=== PATIENT | female | born 1930 | race Caucasian/White ===

== ENCOUNTER 2016-09-03 21:13 | Day surgery (SDC) | payer OTHER, BC ==
[~2016-09-03] VITALS: Ht 170.2 cm; Wt 62.0 kg
[~2016-09-03 21:13] MED LIST: ACCUPRIL10 MG PO; ACCUPRIL5 MG PO; ALBUTEROL17 GM IH; ALENDRONATE SOD70 MG PO; ALPRAZOLAM0.25 M2 PO; AMIODARONE HCL100 MG PO; AMIODARONE HCL400 MG PO; ASPIR 8181 M1 PO; ATORVASTATIN CA20 MG PO; BIOTENE PBF473 ML MM; CALCIUM 600 +1 EAC1 PO; CEPHALEXIN250 MG PO; COLACE100 MG PO; COUMADIN4 MG PO; DONEPEZIL HCL5 MG PO; FERROUS SULFAT325 MG PO; FLONASE16 G1 BOTH NARES; FLOVENT DISKUS1 DIS1 IH; KLONOPIN0.5 M1 PO; KLONOPIN0.5 MG PO; LEFLUNOMIDE20 MG PO; LEVAQUIN500 MG PO; LEVOTHYROXINE25 MCG PO; LIPITOR20 MG PO; LUBRICANT EYE3.5 G1 RIGHT EAR; MUCINEX600 MG PO; NAMENDA10 MG PO; PACERONE100 MG PO; PANTOPRAZOLE SO40 MG PO; PREDNISONE2.5 MG PO; PREDNISONE5 MG PO; PROAIR HFA8.5 GM IH; PROTONIX40 MG PO; REFRESH OPTIVE15 ML BOTH EYES; REQUIP0.5 MG PO; RESTASIS 01 DROP/0.4 BOTH EYES; ROPINIROLE HC0.25 MG PO; SEROQUEL12.5 MG PO; SERTRALINE HCL100 MG PO; SYNTHROID175 MCG PO; SYNTHROID25 MCG PO; SYNTHROID50 MCG PO; SYSTANE 0.3-0.1 EACH BOTH EYES; TIROSINT100 MCG PO; TOBRADEX EYE O3.5 GM RIGHT EYE; TYLENOL EXTRA500 MG PO; VENTOLIN HFA18 GM IH; XANAX0.5 MG PO; ZOCOR20 MG PO; ZOLOFT100 MG PO; ZOLOFT25 MG PO; ZOLOFT50 MG PO
[2016-09-03 21:51] LABS: HEMATOCRIT 34.8 % (36.0-46.0); MCH 31.1 PG (29.0-34.0); MCHC 32.8 G/DL (30.0-36.0); MCV 94.8 FL (83-99); MEAN PLAT.VOLUME 9.1 uM^3 (9.5-12.4); PLATELET COUNT 351 K/uL (156-360); RBC DIS.WIDTH-CV 13.8 % (11.8-14.6); RBC DIS.WIDTH-SD 44.4 % (39-53); RED BLOOD COUNT 3.67 M/uL (3.80-5.20); WHITE BLOOD COUNT 9.5 K/uL (4.1-10.2)
[2016-09-03 22:03] LABS: CHLORIDE 102 mEq/L (99-109); POTASSIUM 4.4 mEq/L (3.7-5.4); SODIUM 137 mEq/L (136-147)
[2016-09-03 22:04] LABS: GLUCOSE 115 mg/dL (70-99)
[2016-09-03 22:06] LABS: ANION GAP 12 MEQ/L (2-14)
[2016-09-03 22:08] LABS: GFR ESTIMATE (CALCULATED) 42 mL/min/
[2016-09-03 22:09] LABS: UREA NITROGEN (BUN) 22 mg/dL (9-23)
[2016-09-03 23:43] VITALS: BP 158/95
== END 2016-09-04 01:31 | disposition home or self-care (01) ==
LOC: EME 21:13 → SDC 23:44 → EME 23:44 → SDC 09-04 01:31
PROVIDERS: Physician Assistant
PROC: 0DC38ZZ Extirpation of Matter from Lower Esophagus, Via Natural or Artificial Opening Endoscopic (ICD-10-PCS; principal; 2016-09-03)
DX: T18.128A Food in esophagus causing other injury, initial encounter (principal); Y92.9 Unspecified place or not applicable; K20.9 Esophagitis, unspecified; K44.9 Diaphragmatic hernia without obstruction or gangrene; I48.91 Unspecified atrial fibrillation; J44.9 Chronic obstructive pulmonary disease, unspecified; E03.9 Hypothyroidism, unspecified; F03.90 Unspecified dementia, unspecified severity, without behavioral disturbance, psychotic disturbance, mood disturbance, and anxiety; Z79.82 Long term (current) use of aspirin; Z79.51 Long term (current) use of inhaled steroids
CPT/HCPCS: 80048; 85027; 93005; 99281; 99285; J0330; J2405; J7040

== ENCOUNTER 2016-10-10 13:06 | Inpatient (IN) | payer OTHER, BC ==
[~2016-10-10] VITALS: Ht 170.2 cm; Wt 59.1 kg
[2016-10-10 14:16] LABS: EOSINOPHIL (%) 2.1 % (0-5); EOSINOPHIL COUNT 0.2 K/uL (0-0.3); HEMATOCRIT 40.2 % (36.0-46.0); IMMATURE GRANULOCYTE (%) 0.1 % (0.0-0.7); IMMATURE GRANULOCYTE COUNT 0.1 K/uL; LYMPHOCYTE COUNT 1.6 K/uL (1.0-2.8); MCH 30.2 PG (29.0-34.0); MCHC 32.8 G/DL (30.0-36.0); MONOCYTE (%) 5.9 % (3-12); MONOCYTE COUNT 0.5 K/uL (0-0.8); NEUTROPHIL (%) 73.2 % (45-76); NEUTROPHIL COUNT 6.4 K/uL (1.8-6.4); PLATELET COUNT 391 K/uL (156-360); RBC DIS.WIDTH-CV 12.9 % (11.8-14.6); RBC DIS.WIDTH-SD 41.7 % (39-53); RED BLOOD COUNT 4.37 M/uL (3.80-5.20); WHITE BLOOD COUNT 8.7 K/uL (4.1-10.2)
[2016-10-10 14:19] LABS: ADD MIUA? YES; BILIRUBIN NEGATIVE; BLOOD NEGATIVE; COLOR YELLOW ((YELLOW)); GLUCOSE (STRIP) NEGATIVE; KETONES NEGATIVE; LEUKOCYTES NEGATIVE; NITRITE NEGATIVE; PROTEIN (STRIP) NEGATIVE; SPECIFIC GRAVITY 1.008 (1.000-1.030); UROBILINOGEN 0.2 MG/DL (0.2-1.0)
[2016-10-10 14:26] LABS: INTER. NORMALIZED RATIO 1.1; PROTHROMBIN TIME 10.9 (9.2-11.2)
[2016-10-10 14:27] LABS: CHLORIDE 100 mEq/L (99-109); SODIUM 139 mEq/L (136-147)
[2016-10-10 14:28] LABS: BACTERIA RARE /HPF; EPITHELIAL CELLS NONE SEEN /HPF; MUCUS NONE SEEN /LPF; RED BLOOD CELLS 0-5 /HPF (0-5); UCUL ADDED? NO; WHITE BLOOD CELLS 0-5 /HPF (0-5)
[2016-10-10 14:29] LABS: GLUCOSE 135 mg/dL (70-99)
[2016-10-10 14:31] LABS: ANION GAP 15 MEQ/L (2-14); TOTAL BILIRUBIN 0.4 mg/dL (0.0-1.0)
[2016-10-10 14:33] LABS: ALKALINE PHOSPHATASE 96 IU/L (3-129); GFR ESTIMATE (CALCULATED) 45 mL/min/
[2016-10-10 14:34] LABS: UREA NITROGEN (BUN) 19 mg/dL (9-23)
[2016-10-10 14:36] LABS: LIPASE 29 U/L (1.0-51.0); TROP-I INTERPRETATION NEGATIVE; TROPONIN-I 0.04 ng/mL (0.0-0.30)
[2016-10-10] MEDS ORDERED: LUBRICANT EYE3.5 G2 RIGHT EYE (16:32)
[2016-10-10] MEDS ORDERED: BIOTENE PBF473 ML MM (16:37)
[2016-10-10 20:36] VITALS: BP 106/62
[2016-10-10 22:01] LABS: TROP-I INTERPRETATION NEGATIVE; TROPONIN-I 0.07 ng/mL (0.0-0.30)
[2016-10-11] VITALS: BP 117/86
[2016-10-11 03:24] LABS: HEMATOCRIT 32.5 % (36.0-46.0); MCH 30.3 PG (29.0-34.0); MCHC 32.6 G/DL (30.0-36.0); MCV 92.9 FL (83-99); MEAN PLAT.VOLUME 8.9 uM^3 (9.5-12.4); PLATELET COUNT 316 K/uL (156-360); RBC DIS.WIDTH-CV 12.9 % (11.8-14.6); RBC DIS.WIDTH-SD 40.9 % (39-53); WHITE BLOOD COUNT 7.5 K/uL (4.1-10.2)
[2016-10-11 03:30] LABS: CHLORIDE 107 mEq/L (99-109); POTASSIUM 3.7 mEq/L (3.7-5.4)
[2016-10-11 03:31] LABS: SODIUM 139 mEq/L (136-147)
[2016-10-11 03:32] LABS: GLUCOSE 98 mg/dL (70-99)
[2016-10-11 03:34] LABS: ANION GAP 10 MEQ/L (2-14)
[2016-10-11 03:36] LABS: GFR ESTIMATE (CALCULATED) 38 mL/min/
[2016-10-11 03:37] LABS: UREA NITROGEN (BUN) 24 mg/dL (9-23)
[2016-10-11 03:43] LABS: TROP-I INTERPRETATION NEGATIVE; TROPONIN-I 0.07 ng/mL (0.0-0.30)
[2016-10-11 05:25] VITALS: BP 158/85
[2016-10-11 07:34] VITALS: BP 139/86
[2016-10-11 12:28] VITALS: BP 146/84
[2016-10-11 16:19] VITALS: BP 142/80
[2016-10-11 19:56] VITALS: BP 139/86
[2016-10-12 00:23] VITALS: BP 168/87
[2016-10-12 07:39] LABS: HEMATOCRIT 37.5 % (36.0-46.0); MCH 30.9 PG (29.0-34.0); MCHC 33.3 G/DL (30.0-36.0); MCV 92.8 FL (83-99); PLATELET COUNT 336 K/uL (156-360); RBC DIS.WIDTH-SD 43.8 % (39-53); RED BLOOD COUNT 4.04 M/uL (3.80-5.20); WHITE BLOOD COUNT 7.6 K/uL (4.1-10.2)
[2016-10-12 07:54] LABS: D-DIMER ELISA 0.86 mg/L FEU (< 0.57)
[2016-10-12 08:07] VITALS: BP 150/90
[2016-10-12 08:08] LABS: ANION GAP 13 MEQ/L (2-14); CHLORIDE 105 MEQ/L (99-109); GFR ESTIMATE (CALCULATED) 56 mL/min/; GLUCOSE 98 mg/dL (70-99); POTASSIUM 3.2 MEQ/L (3.7-5.4); SAMPLE HEMOLYSIS CHECK 0; SAMPLE ICTERIC CHECK 0; SAMPLE LIPEMIA CHECK 0; SODIUM 142 MEQ/L (136-147); UREA NITROGEN (BUN) 15 mg/dL (9-23)
== END 2016-10-12 15:20 | disposition home health service (06) | DRG 72 ==
LOC: EME 13:06 → 5SOUTH 16:27 → EDOF 16:27 → 5SOUTH 19:47
PROVIDERS: Emergency Medicine; Hospitalist; Physician Assistant Medical
DX: G93.41 Metabolic encephalopathy (principal); E86.0 Dehydration; E11.9 Type 2 diabetes mellitus without complications; G30.8 Other Alzheimer's disease; F02.80 Dementia in other diseases classified elsewhere, unspecified severity, without behavioral disturbance, psychotic disturbance, mood disturbance, and anxiety; F33.42 Major depressive disorder, recurrent, in full remission; K59.03 Drug induced constipation; R00.0 Tachycardia, unspecified; R26.2 Difficulty in walking, not elsewhere classified; H35.30 Unspecified macular degeneration; H54.8 Legal blindness, as defined in USA; J43.9 Emphysema, unspecified; Z96.651 Presence of right artificial knee joint; Z96.642 Presence of left artificial hip joint; Z88.1 Allergy status to other antibiotic agents; Z88.5 Allergy status to narcotic agent; Z79.82 Long term (current) use of aspirin; Z87.891 Personal history of nicotine dependence
CPT/HCPCS: 70450; 71010; 72110; 72170; 72192; 80048; 80053; 81003; 83605; 83690; 84484; 85025; 85027; 85379; 85610; 85730; 87040; 92526 GN; 92610 GN; 93005; 93970; 97530 GO; 99202; 99281; 99285; J1644; J1885; J7030; J7512

== ENCOUNTER 2017-08-18 14:41 | Emergency (ER) | payer OTHER, BC ==
[~2017-08-18] VITALS: Ht 172.7 cm; Wt 50.0 kg
[~2017-08-18 14:41] MED LIST changes: +LUBRICANT EYE3.5 G2 RIGHT EYE
[2017-08-18 15:21] LABS: HEMATOCRIT 35.1 % (36.0-46.0); HEMOGLOBIN 11.6 G/DL (11.9-15.5); MCV 96.7 FL (83-99); PLATELET COUNT 279 K/uL (156-360); RBC DIS.WIDTH-CV 13.2 % (11.8-14.6); RBC DIS.WIDTH-SD 46.6 % (39-53); RED BLOOD COUNT 3.63 M/uL (3.80-5.20); WHITE BLOOD COUNT 8.7 K/uL (4.1-10.2)
[2017-08-18 15:31] LABS: ALBUMIN 3.5 g/dL (3.2-4.8); CHLORIDE 104 mEq/L (99-109); POTASSIUM 4.2 mEq/L (3.7-5.4); SODIUM 139 mEq/L (136-147)
[2017-08-18 15:33] LABS: GLUCOSE 149 mg/dL (70-99); TOTAL PROTEIN 6.5 g/dL (6.4-8.3)
[2017-08-18 15:35] LABS: TOTAL BILIRUBIN 0.4 mg/dL (0.0-1.0)
[2017-08-18 15:37] LABS: ALKALINE PHOSPHATASE 66 IU/L (3-129); CREATININE 1.2 mg/dL (0.6-1.3); GFR ESTIMATE (CALCULATED) 45 mL/min/
[2017-08-18 15:38] LABS: UREA NITROGEN (BUN) 21 mg/dL (9-23)
[2017-08-18 15:39] LABS: AST (GOT) 18 IU/L (2-34)
[2017-08-18 15:40] LABS: ALT (GPT) 10 IU/L (3-49)
[2017-08-18 15:48] LABS: APPEARANCE CLEAR ((CLEAR)); BILIRUBIN NEGATIVE; BLOOD NEGATIVE; COLOR YELLOW ((YELLOW)); GLUCOSE (STRIP) NEGATIVE; KETONES NEGATIVE; LEUKOCYTES LARGE; NITRITE NEGATIVE; PROTEIN (STRIP) NEGATIVE; SPECIFIC GRAVITY 1.015 (1.000-1.030); UROBILINOGEN 0.2 MG/DL (0.2-1.0)
[2017-08-18 17:09] LABS: BACTERIA 2+ /HPF; EPITHELIAL CELLS 1+ /HPF; MUCUS NONE SEEN /LPF; RED BLOOD CELLS NONE SEEN /HPF (0-5); UCUL ADDED? YES; WHITE BLOOD CELLS TNTC /HPF (0-5)
[2017-08-18 17:17] VITALS: BP 164/98
== END 2017-08-18 17:41 | disposition home or self-care (01) ==
LOC: EME 14:41
PROVIDERS: Emergency Medicine
DX: R41.82 Altered mental status, unspecified (principal); N39.0 Urinary tract infection, site not specified; F03.90 Unspecified dementia, unspecified severity, without behavioral disturbance, psychotic disturbance, mood disturbance, and anxiety; E03.9 Hypothyroidism, unspecified; J44.9 Chronic obstructive pulmonary disease, unspecified; I48.91 Unspecified atrial fibrillation; Z87.440 Personal history of urinary (tract) infections; Z88.1 Allergy status to other antibiotic agents; Z79.52 Long term (current) use of systemic steroids; Z79.82 Long term (current) use of aspirin; Z87.891 Personal history of nicotine dependence
CPT/HCPCS: 71046; 80053; 81003; 85027; 87086; 99281; 99285; J7030

== ENCOUNTER 2017-08-29 19:35 | Inpatient (IN) | payer OTHER, BC ==
[~2017-08-29] VITALS: Ht 162.6 cm; Wt 44.2 kg
[~2017-08-29 19:35] MED LIST changes: -REQUIP0.5 MG PO; +REQUIP1 MG PO
[2017-08-29 20:21] LABS: BASOPHIL (%) 0.6 % (0-1); BASOPHIL COUNT 0.1 K/uL (0-0.1); EOSINOPHIL (%) 1.3 % (0-5); EOSINOPHIL COUNT 0.1 K/uL (0-0.3); HEMATOCRIT 34.8 % (36.0-46.0); HEMOGLOBIN 11.7 G/DL (11.9-15.5); IMMATURE GRANULOCYTE (%) 0.4 % (0.0-0.7); LYMPHOCYTE (%) 14.5 % (15-42); LYMPHOCYTE COUNT 1.2 K/uL (1.0-2.8); MCH 32.2 PG (29.0-34.0); MCHC 33.6 G/DL (30.0-36.0); MCV 95.9 FL (83-99); MONOCYTE (%) 9.7 % (3-12); MONOCYTE COUNT 0.8 K/uL (0-0.8); NEUTROPHIL (%) 73.5 % (45-76); PLATELET COUNT 303 K/uL (156-360); RBC DIS.WIDTH-CV 12.8 % (11.8-14.6); RBC DIS.WIDTH-SD 45.1 % (39-53); RED BLOOD COUNT 3.63 M/uL (3.80-5.20); WHITE BLOOD COUNT 8.2 K/uL (4.1-10.2)
[2017-08-29 20:29] LABS: ALBUMIN 3.3 g/dL (3.2-4.8); CHLORIDE 106 mEq/L (99-109); SODIUM 137 mEq/L (136-147)
[2017-08-29 20:31] LABS: GLUCOSE 128 mg/dL (70-99)
[2017-08-29 20:32] LABS: TOTAL PROTEIN 6.2 g/dL (6.4-8.3)
[2017-08-29 20:33] LABS: TOTAL BILIRUBIN 0.3 mg/dL (0.0-1.0)
[2017-08-29 20:35] LABS: ALKALINE PHOSPHATASE 62 IU/L (3-129); CREATININE 1.4 mg/dL (0.6-1.3); GFR ESTIMATE (CALCULATED) 38 mL/min/
[2017-08-29 20:36] LABS: UREA NITROGEN (BUN) 26 mg/dL (9-23)
[2017-08-29 20:37] LABS: AST (GOT) 17 IU/L (2-34)
[2017-08-29 20:38] LABS: ALT (GPT) 10 IU/L (3-49)
[2017-08-29 21:02] LABS: APPEARANCE CLEAR ((CLEAR)); BILIRUBIN NEGATIVE; BLOOD NEGATIVE; COLOR YELLOW ((YELLOW)); GLUCOSE (STRIP) NEGATIVE; KETONES NEGATIVE; LEUKOCYTES NEGATIVE; NITRITE NEGATIVE; PROTEIN (STRIP) NEGATIVE; SPECIFIC GRAVITY 1.017 (1.000-1.030); UCUL ADDED? NO; UROBILINOGEN 0.2 MG/DL (0.2-1.0)
[2017-08-29] MEDS ORDERED: ZOVIRAX800 M1 PO (23:10)
[2017-08-29] MEDS ORDERED: NEURONTIN100 MG PO (23:10)
[2017-08-29] MEDS ORDERED: COLACE100 MG PO (23:13)
[2017-08-30 00:10] VITALS: BP 188/98
[2017-08-30 04:08] VITALS: BP 184/117
[2017-08-30 05:30] VITALS: BP 114/75
[2017-08-30 08:17] VITALS: BP 127/74
[2017-08-30 12:02] VITALS: BP 124/74
[2017-08-31 00:33] VITALS: BP 160/94
[2017-08-31 04:00] VITALS: BP 133/93
[2017-08-31 07:03] LABS: BASOPHIL (%) 0.7 % (0-1); BASOPHIL COUNT 0.1 K/uL (0-0.1); EOSINOPHIL (%) 1.8 % (0-5); EOSINOPHIL COUNT 0.2 K/uL (0-0.3); HEMATOCRIT 31.8 % (36.0-46.0); HEMOGLOBIN 10.6 G/DL (11.9-15.5); IMMATURE GRANULOCYTE (%) 0.4 % (0.0-0.7); LYMPHOCYTE (%) 16.1 % (15-42); LYMPHOCYTE COUNT 1.3 K/uL (1.0-2.8); MCH 31.4 PG (29.0-34.0); MCHC 33.3 G/DL (30.0-36.0); MCV 94.1 FL (83-99); MONOCYTE (%) 6.9 % (3-12); MONOCYTE COUNT 0.6 K/uL (0-0.8); NEUTROPHIL (%) 74.1 % (45-76); NEUTROPHIL COUNT 6.1 K/uL (1.8-6.4); PLATELET COUNT 313 K/uL (156-360); RBC DIS.WIDTH-SD 44.5 % (39-53); RED BLOOD COUNT 3.38 M/uL (3.80-5.20); WHITE BLOOD COUNT 8.2 K/uL (4.1-10.2)
[2017-08-31 07:10] VITALS: BP 148/72
[2017-08-31 07:26] LABS: ALBUMIN 3.4 G/DL (3.2-4.8); ALKALINE PHOSPHATASE 63 IU/L (3-129); ALT (GPT) 11 IU/L (3-49); AST (GOT) 19 IU/L (2-34); CHLORIDE 106 MEQ/L (99-109); GFR ESTIMATE (CALCULATED) > 59 mL/min/; GLUCOSE 127 mg/dL (70-99); POTASSIUM 3.2 MEQ/L (3.7-5.4); SODIUM 136 MEQ/L (136-147); TOTAL BILIRUBIN 0.5 MG/DL (0.0-1.0); TOTAL PROTEIN 6.2 G/DL (6.4-8.3); UREA NITROGEN (BUN) 14 mg/dL (9-23)
[2017-08-31 07:40] LABS: CREATININE 0.8 MG/DL (0.6-1.3)
[2017-08-31 10:40] LABS: THYROTROPIN (TSH) 0.76 MIU/L (0.4-5.5)
[2017-08-31 10:44] VITALS: BP 139/82
[2017-08-31 11:20] LABS: TREPONEMA ANTIBODY NEGATIVE (NEGATIVE)
[2017-08-31 15:41] VITALS: BP 128/78
[2017-08-31 19:31] VITALS: BP 132/95
[2017-09-01] VITALS (7 sets, daily range): BP systolic 132–188; BP diastolic 65–103
[2017-09-02 03:11] VITALS: BP 138/86
[2017-09-02 06:19] LABS: BASOPHIL (%) 0.6 % (0-1); EOSINOPHIL COUNT 0.3 K/uL (0-0.3); HEMOGLOBIN 11.7 G/DL (11.9-15.5); IMMATURE GRANULOCYTE (%) 0.2 % (0.0-0.7); LYMPHOCYTE (%) 23.8 % (15-42); LYMPHOCYTE COUNT 1.5 K/uL (1.0-2.8); MCHC 33.4 G/DL (30.0-36.0); MCV 95.6 FL (83-99); MONOCYTE (%) 8.4 % (3-12); MONOCYTE COUNT 0.5 K/uL (0-0.8); NEUTROPHIL COUNT 3.9 K/uL (1.8-6.4); PLATELET COUNT 319 K/uL (156-360); RBC DIS.WIDTH-SD 45.9 % (39-53); RED BLOOD COUNT 3.66 M/uL (3.80-5.20); WHITE BLOOD COUNT 6.2 K/uL (4.1-10.2)
[2017-09-02 06:57] LABS: CHLORIDE 107 MEQ/L (99-109); GFR ESTIMATE (CALCULATED) 56 mL/min/; GLUCOSE 100 mg/dL (70-99); SODIUM 139 MEQ/L (136-147); UREA NITROGEN (BUN) 14 mg/dL (9-23)
[2017-09-02 06:58] LABS: POTASSIUM 3.9 MEQ/L (3.7-5.4)
[2017-09-02 08:29] VITALS: BP 166/92
[2017-09-02 13:11] VITALS: BP 146/79
[2017-09-02 15:14] VITALS: BP 139/76
[2017-09-02 20:31] VITALS: BP 124/89
[2017-09-02 23:59] VITALS: BP 117/88
[2017-09-03 04:03] VITALS: BP 163/93
[2017-09-03 06:47] LABS: BASOPHIL (%) 0.6 % (0-1); EOSINOPHIL (%) 3.7 % (0-5); EOSINOPHIL COUNT 0.3 K/uL (0-0.3); HEMATOCRIT 33.3 % (36.0-46.0); HEMOGLOBIN 11.1 G/DL (11.9-15.5); IMMATURE GRANULOCYTE (%) 0.1 % (0.0-0.7); LYMPHOCYTE (%) 23.5 % (15-42); LYMPHOCYTE COUNT 1.6 K/uL (1.0-2.8); MCH 31.9 PG (29.0-34.0); MCHC 33.3 G/DL (30.0-36.0); MCV 95.7 FL (83-99); MONOCYTE (%) 8.8 % (3-12); MONOCYTE COUNT 0.6 K/uL (0-0.8); NEUTROPHIL (%) 63.3 % (45-76); NEUTROPHIL COUNT 4.2 K/uL (1.8-6.4); PLATELET COUNT 314 K/uL (156-360); RBC DIS.WIDTH-CV 13.2 % (11.8-14.6); RBC DIS.WIDTH-SD 46.1 % (39-53); RED BLOOD COUNT 3.48 M/uL (3.80-5.20); WHITE BLOOD COUNT 6.7 K/uL (4.1-10.2)
[2017-09-03 07:15] LABS: CHLORIDE 106 MEQ/L (99-109); GFR ESTIMATE (CALCULATED) 56 mL/min/; GLUCOSE 113 mg/dL (70-99); POTASSIUM 3.7 MEQ/L (3.7-5.4); SODIUM 138 MEQ/L (136-147); UREA NITROGEN (BUN) 16 mg/dL (9-23)
[2017-09-03 07:54] VITALS: BP 178/90
[2017-09-03] MEDS ORDERED: MYCOSTATIN 100,60 ML PO (09:55)
[2017-09-03] MEDS ORDERED: AMLODIPINE BESYL5 MG PO (09:55)
[2017-09-03] MEDS ORDERED: ACYCLOVIR800 MG PO (10:39)
[2017-09-03 12:26] VITALS: BP 163/94
== END 2017-09-03 15:02 | disposition home or self-care (01) | DRG 74 ==
LOC: EME 19:35 → 5SOUTH 22:14 → EDOF 22:14 → ENRESERV 22:15 → 5SOUTH 23:21
PROVIDERS: Emergency Medicine Emergency Medical Services; Hospitalist; Internal Medicine
DX: B02.29 Other postherpetic nervous system involvement (principal); N17.9 Acute kidney failure, unspecified; B37.0 Candidal stomatitis; R64 Cachexia; Z68.1 Body mass index [BMI] 19.9 or less, adult; E86.0 Dehydration; I48.2 Chronic atrial fibrillation; J43.9 Emphysema, unspecified; I10 Essential (primary) hypertension; G30.9 Alzheimer's disease, unspecified; F02.80 Dementia in other diseases classified elsewhere, unspecified severity, without behavioral disturbance, psychotic disturbance, mood disturbance, and anxiety; E11.9 Type 2 diabetes mellitus without complications; E03.9 Hypothyroidism, unspecified; F39 Unspecified mood [affective] disorder; H35.30 Unspecified macular degeneration; M06.9 Rheumatoid arthritis, unspecified; H54.8 Legal blindness, as defined in USA; R63.0 Anorexia; D64.9 Anemia, unspecified; F41.9 Anxiety disorder, unspecified; K21.0 Gastro-esophageal reflux disease with esophagitis; H91.90 Unspecified hearing loss, unspecified ear; K44.9 Diaphragmatic hernia without obstruction or gangrene; Z66 Do not resuscitate; Z96.653 Presence of artificial knee joint, bilateral; Z96.642 Presence of left artificial hip joint; Z79.82 Long term (current) use of aspirin; Z87.891 Personal history of nicotine dependence; Z87.440 Personal history of urinary (tract) infections
CPT/HCPCS: 80048; 80053; 81003; 82533 91; 82948; 84443; 85025; 86780; 99281; 99285; J0360; J1644; J1815; J3480; J7030; J7040; J7512